=== PATIENT | female | born 1965 | race Caucasian/White ===

== ENCOUNTER 2017-05-03 11:47 | Day surgery (SDC) | payer OTHER ==
[~2017-05-03] VITALS: Ht 167.6 cm; Wt 64.4 kg
[~2017-05-03 11:47] MED LIST: SYNTHROID112 MCG PO; ZYRTEC10 M3 PO
[2017-05-03 13:01] VITALS: BP 127/77; BP 131/78
[2017-05-03 13:03] VITALS: BP 131/78
[2017-05-03 17:50] VITALS: BP 137/97
[2017-05-03 18:50] VITALS: BP 112/59
[2017-05-03 20:00] VITALS: BP 112/61
== END 2017-05-03 20:00 | disposition home or self-care (01) ==
LOC: SDC 11:47
DX: H33.41 Traction detachment of retina, right eye (principal); R00.1 Bradycardia, unspecified; E03.9 Hypothyroidism, unspecified; Z87.891 Personal history of nicotine dependence
CPT/HCPCS: J0330; J0690; J1100; J2250; J2405; J3010; J3300; Q0175

== ENCOUNTER 2017-08-27 05:18 | Day surgery (SDC) | payer OTHER ==
[~2017-08-27] VITALS: Ht 167.6 cm; Wt 68.0 kg
[~2017-08-27 05:18] MED LIST changes: +FLONASE ALLERG9.9 ML BOTH NARES
[2017-08-27 06:13] VITALS: BP 126/72
[2017-08-27 08:36] VITALS: BP 137/64
[2017-08-27 09:20] VITALS: BP 118/60
== END 2017-08-27 09:25 | disposition home or self-care (01) ==
LOC: SDC 05:18
DX: H33.41 Traction detachment of retina, right eye (principal); E03.9 Hypothyroidism, unspecified; J30.9 Allergic rhinitis, unspecified; Z90.710 Acquired absence of both cervix and uterus; Z88.2 Allergy status to sulfonamides; Z80.1 Family history of malignant neoplasm of trachea, bronchus and lung; Z82.49 Family history of ischemic heart disease and other diseases of the circulatory system; Z83.3 Family history of diabetes mellitus
CPT/HCPCS: J0690; J2250; J2405; J3010; J3300